=== PATIENT | male | born 1950 | race Caucasian/White ===

== ENCOUNTER → 2017-01-12 07:47 | Emergency (ER) | payer MEDICARE, OTHER ==
[~2017-01-12 07:47] MED LIST: Famotidine IV* 10 MG/ML 2 ML (20 mg) IV SLOW PU ONE; NS 0.9% 1000 ML* 1,000 ML IV ONE
--- NOTE | 2017-01-12 08:30 | RAD ---
HISTORY: Abdominal pain COMPARISONS: CT dated May 02, 2016 VIEWS: Frontal views of the abdomen. FINDINGS: BOWEL: There is a nonobstructive bowel gas pattern. There is a large amount of stool within the colon. CALCULI: There are no abnormal calculi. BONES AND SOFT TISSUES: Degenerative changes are noted OTHER FINDINGS: The lung bases are clear. There is no subphrenic gas. IMPRESSION: NONOBSTRUCTIVE BOWEL GAS PATTERN. LARGE AMOUNT STOOL WITHIN THE COLON.
[2017-01-12 08:44] LABS: Hematocrit 40 % (42-52); Hemoglobin 13.5 g/dl (14.0-18.0); Mean Corpuscular HGB Conc 33 g/dl (31-36); Mean Corpuscular Hemoglobin 29 pg (27-31); Mean Corpuscular Volume 88 fL (80-94); Mean Platelet Volume 9 um3 (7.4-10.4); Red Cell Distribution Width 13 % (10.5-15); White Blood Count 7.6 10^3/ul (3.5-10.8)
[2017-01-12 08:56] LABS: ALT 16 U/L (7-52); AST 14 U/L (13-39); Albumin 3.7 g/dL (3.2-5.2); Alkaline Phosphatase 53 U/L (34-104); Amylase 40 U/L (29-103); Anion Gap 4 mmol/L (2-11); Blood Urea Nitrogen 14 mg/dL (6-24); C Reactive Protein < 1.00 mg/L (< 5.00); CO2 Carbon Dioxide 30 mmol/L (22-32); Calcium 8.7 mg/dL (8.6-10.3); Chloride 103 mmol/L (101-111); EGFR African American 96.1 (>60); EGFR Non-African American 74.8 (>60); Globulin 2.3 g/dL (2-4); Glucose 98 mg/dL (70-100); Lipase 30 U/L (11.0-82.0); Magnesium 1.9 mg/dL (1.9-2.7); Sodium 137 mmol/L (133-145)
[2017-01-12 09:28] LABS: Urine Bacteria Absent (Absent); Urine Bilirubin Negative (Negative); Urine Glucose Negative (Negative); Urine Nitrite Negative (Negative)
[2017-01-12 12:09] VITALS: BP 117/55
--- NOTE | 2017-01-12 13:22 | ED ---
Sarthak Farfan Billy, scribed for Gael Dalton MD on 01/12/17 at 0843 . Syncope/Near Syncope - HPI Summary HPI Summary: This patient is a 66 year-old male who is two-days post-op bladder neck incision. He presents to the ED with a complaint of a near-syncopal episode this morning. He was sitting at his computer when he began to feel lightheaded and nearly had a syncopal episode. He complained of pain underneath the ribcage on the right, which later moved to pain underneath the left ribcage. He also reported some lower abdominal pain during the episode. Pain severity 7/10. He denies any headache, palpitations, chest pain, shortness of breath, or blurred vision, although he was very diaphoretic. - History Of Current Complaint Chief Complaint: EDSyncope Time Seen by Provider: 01/12/17 07:50 Hx Obtained From: Patient Onset/Duration: Gradual Onset Timing: Constant Context: Other - No LOC Activity At Onset: At Rest Associated Head Trauma: No Aggravating Factor(s): Nothing Alleviating Factor(s): Nothing Associated Signs And Symptoms: Diaphoresis - Allergies/Home Medications Allergies/Adverse Reactions: Allergies Allergy/AdvReac Type Severity Reaction Status Date / Time Ciprofloxacin [From Cipro] Allergy Severe [place]akes Verified 01/12/17 08:01 [place] Allergy Severe See Comment Verified 01/12/17 08:01 Penicillins [PCN] Allergy Unknown See Comment Verified 01/12/17 08:01 Cyclobenzaprine Allergy Rash Verified 01/12/17 08:01 Home Medications: Home Medications oxyCODONE/Acetamin 5/325 MG* [Percocet 5/325 TAB*] 1 tab PO Q4H PRN 01/12/17 [ History Confirmed 01/12/17] PMH/Surg Hx/FS Hx/Imm Hx Endocrine/Hematology History: Denies: Hx Diabetes Cardiovascular History: Denies: Hx Hypertension, Hx Pacemaker/ICD GI History: Reports: Other GI Disorders - splenic flexure syndrome History: Reports: Other Problems/Disorders - Overactive Bladder, Enlarged Prostate, interstitial cystitis Denies: Hx Dialysis, Hx Renal Disease Musculoskeletal History: Reports: Other Musculoskeletal History - Spinal Disk Deterioration, Mortons Neuromas Sensory History: Reports: Hx Hearing Aid - WILL NOT WEAR FOR MR Neurological History: Reports: Other Neuro Impairments/Disorders - Peripheral Neuropathy, Sleep Apnea, Denies: Hx Seizures Psychiatric History: Reports: Hx Panic Disorder - WILL BE OK FOR THIS MRI, Hx Post Traumatic Stress Disorder, Other Psychiatric Issues/Disorders - Social Anexity - Surgical History Surgery Procedure, Year, and Place: CYST REMOVED LT INDEX FINGER Infectious Disease History: No Infectious Disease History: Denies: Hx Clostridium Difficile, Hx Hepatitis, Hx Human Immunodeficiency Virus (HIV), Hx Shingles, Hx Tuberculosis, Traveled Outside the [place] in Last 30 Days - Family History Known Family History: Positive: Cardiac Disease Negative: Hypertension, Diabetes - Social History Alcohol Use: None Substance Use Type: Reports: None Smoking Status (MU): Never Smoked Tobacco Review of Systems Positive: Skin Diaphoresis Negative: Blurred Vision Negative: Palpitations, Chest Pain Negative: Shortness Of Breath Positive: Abdominal Pain Neurological: Other - lightheadedness Positive: Syncope - near-syncope. Negative: Headache All Other Systems Reviewed And Are Negative: Yes Physical Exam - Summary Physical Exam Summary: VITAL SIGNS: Reviewed. GENERAL: Patient is a well developed and nourished male who is lying comfortable in the stretcher. Patient is not in any acute respiratory distress. HEAD AND FACE: Normocephalic EYES: PERRLA, EOMI x 2. EARS: Hearing grossly intact. MOUTH: Oropharynx within normal limits. NECK: Supple, trachea is midline, no adenopathy, no JVD, no carotid bruit. CHEST: Symmetric, no tenderness at palpation LUNGS: Clear to auscultation bilaterally. No wheezing or crackles. CVS: Regular rate and rhythm, S1 and S2 present, no murmurs or gallops appreciated. ABDOMEN: Soft, tender to the epigastrium and LUQ. Bowel sounds are normal. No abdominal abnormal pulsations. EXTREMITIES: Full ROM in all major joints, no edema, no cyanosis or clubbing. NEURO: Alert and oriented x 3. No acute neurological deficits. Speech is normal and follows commands. SKIN: Dry and warm Triage Information Reviewed: Yes Vital Signs On Initial Exam: Initial Vitals Temp Pulse Resp BP Pulse Ox 98.1 F 57 20 128/64 100 01/12/17 07:52 01/12/17 07:52 01/12/17 07:52 01/12/17 07:52 01/12/17 07:52 Vital Signs Reviewed: Yes Diagnostics - Vital Signs Vital Signs Temp Pulse Resp BP Pulse Ox 01/12/17 07:52 98.1 F 57 20 128/64 100 - Laboratory Lab Results: Lab Results 01/12/17 01/12/17 01/12/17 Range/Units 08:28 08:28 08:28 WBC 7.6 (3.5-10.8) 10^3/ul RBC 4.60 (4.0-5.4) 10^6/ul Hgb 13.5 L (14.0-18.0) g/dl Hct 40 L (42-52) % MCV 88 (80-94) fL MCH 29 (27-31) pg MCHC 33 (31-36) g/dl RDW 13 (10.5-15) % Plt Count 108 L (150-450) 10^3/ul MPV 9 (7.4-10.4) um3 Neut % (Auto) 63.3 (38-83) % Lymph % (Auto) 27.4 (25-47) % [place] % (Auto) 8.1 (1-9) % Eos % (Auto) 0.5 (0-6) % Baso % (Auto) 0.7 (0-2) % Absolute Neuts (auto) 4.8 (1.5-7.7) 10^3/ul Absolute Lymphs (auto) 2.1 (1.0-4.8) 10^3/ul Absolute Monos (auto) 0.6 (0-0.8) 10^3/ul Absolute Eos (auto) 0 (0-0.6) 10^3/ul Absolute Basos (auto) 0.1 (0-0.2) 10^3/ul Absolute Nucleated RBC 0 10^3/ul Nucleated RBC % 0 Sodium 137 (133-145) mmol/L Potassium 4.0 (3.5-5.0) mmol/L Chloride 103 (101-111) mmol/L Carbon Dioxide 30 (22-32) mmol/L Anion Gap 4 (2-11) mmol/L BUN 14 (6-24) mg/dL Creatinine 1.00 (0.67-1.17) mg/dL Est GFR ( Amer) 96.1 (>60) Est GFR (Non-Af Amer) 74.8 (>60) BUN/Creatinine Ratio 14.0 (8-20) Glucose 98 (70-100) mg/dL Lactic Acid 1.2 (0.5-2.0) mmol/L Calcium 8.7 (8.6-10.3) mg/dL Magnesium 1.9 (1.9-2.7) mg/dL Total Bilirubin 0.40 (0.2-1.0) mg/dL AST 14 (13-39) U/L ALT 16 (7-52) U/L Alkaline Phosphatase 53 (34-104) U/L C-Reactive Protein < 1.00 (< 5.00) mg/L Total Protein 6.0 L (6.4-8.9) g/dL Albumin 3.7 (3.2-5.2) g/dL Globulin 2.3 (2-4) g/dL Albumin/Globulin Ratio 1.6 (1-3) Amylase 40 (29-103) U/L Lipase 30 (11.0-82.0) U/L Urine Color Urine Appearance Urine pH (5-9) Ur Specific [place] (1.010-1.030) Urine Protein (Negative) Urine Ketones (Negative) Urine Blood (Negative) Urine Nitrate (Negative) Urine Bilirubin (Negative) Urine Urobilinogen (Negative) Ur Leukocyte Esterase (Negative) Urine WBC (Auto) (Absent) Urine RBC (Auto) (Absent) Urine Bacteria (Absent) Urine Glucose (Negative) 01/12/17 Range/Units 09:10 WBC (3.5-10.8) 10^3/ul RBC (4.0-5.4) 10^6/ul Hgb (14.0-18.0) g/dl Hct (42-52) % MCV (80-94) fL MCH (27-31) pg MCHC (31-36) g/dl RDW (10.5-15) % Plt Count (150-450) 10^3/ul MPV (7.4-10.4) um3 Neut % (Auto) (38-83) % Lymph % (Auto) (25-47) % [place] % (Auto) (1-9) % Eos % (Auto) (0-6) % Baso % (Auto) (0-2) % Absolute Neuts (auto) (1.5-7.7) 10^3/ul Absolute Lymphs (auto) (1.0-4.8) 10^3/ul Absolute Monos (auto) (0-0.8) 10^3/ul Absolute Eos (auto) (0-0.6) 10^3/ul Absolute Basos (auto) (0-0.2) 10^3/ul Absolute Nucleated RBC 10^3/ul Nucleated RBC % Sodium (133-145) mmol/L Potassium (3.5-5.0) mmol/L Chloride (101-111) mmol/L Carbon Dioxide (22-32) mmol/L Anion Gap (2-11) mmol/L BUN (6-24) mg/dL Creatinine (0.67-1.17) mg/dL Est GFR ( Amer) (>60) Est GFR (Non-Af Amer) (>60) BUN/Creatinine Ratio (8-20) Glucose (70-100) mg/dL Lactic Acid (0.5-2.0) mmol/L Calcium (8.6-10.3) mg/dL Magnesium (1.9-2.7) mg/dL Total Bilirubin (0.2-1.0) mg/dL AST (13-39) U/L ALT (7-52) U/L Alkaline Phosphatase (34-104) U/L C-Reactive Protein (< 5.00) mg/L Total Protein (6.4-8.9) g/dL Albumin (3.2-5.2) g/dL Globulin (2-4) g/dL Albumin/Globulin Ratio (1-3) Amylase (29-103) U/L Lipase (11.0-82.0) U/L Urine Color Straw Urine Appearance Clear Urine pH 7.0 (5-9) Ur Specific [place] 1.008 L (1.010-1.030) Urine Protein 1+(30 mg/dl) H (Negative) Urine Ketones Negative (Negative) Urine Blood 3+ H (Negative) Urine Nitrate Negative (Negative) Urine Bilirubin Negative (Negative) Urine Urobilinogen Negative (Negative) Ur Leukocyte Esterase Trace H (Negative) Urine WBC (Auto) 1+(6-10/hpf) H (Absent) Urine RBC (Auto) 3+(>10/hpf) H (Absent) Urine Bacteria Absent (Absent) Urine Glucose Negative (Negative) Result Diagrams: 01/12/17 08:28 05/27/17 08:28 Lab Statement: Any lab studies that have been ordered have been reviewed, and results considered in the medical decision making process. - Radiology Abdomen XRay Radiology Interpretation Completed By: Radiologist - Nonobstructive bowel gas pattern. Large amount stool within the colon. - EKG 0838 EKG Interpretation: sinus bradycardia 52 bpm, no STEMI Re-Evaluation - Re-Evaluation First Eval Re-Evaluation Time: 12:05 Change: Improved Comment: He feels much better. After he passed gas, his symptoms completely resolved. He was offered a CT of the abdomen for further imaging at this time, but he declined. He will be discharged home. Course/Dx Assessment/Plan: This patient is a 66 year-old male who is two-days post-op bladder neck incision. He presents to the ED with a complaint of a near- syncopal episode this morning. He was sitting at his computer when he began to feel lightheaded and nearly had a syncopal episode. He complained of pain underneath the ribcage on the right, which later moved to pain underneath the left ribcage. He also reported some lower abdominal pain during the episode. Pain severity 7/10. He denies any headache, palpitations, chest pain, shortness of breath, or blurred vision, although he was very diaphoretic. Test results WNL except for a slight anemia. UA shows 3+ blood with some contamination, possibly secondary to his bladder manipulation 2 days ago. Abdominal x-ray shows large amounts of stool in the colon and a nonobstructive gas pattern. Since he had bladder manipulation 2 days ago, I ordered a CT of the abd/pel, which the patient declined. He reports that about 3 or 4 days ago, he had a CT abd/pel which was normal, so he does not want to repeat it now. The patient had several episodes of gas movement per rectum with resolution of his symptoms. Patient reported he develop the pain in abdomen, became diaphoretic and felt like he was going to pass ou. I believe he had a vasovagal episode.. I gave the patient a prescription for Miralax and instructed him to follow up with his PCP and urologist. He was instructed that if he develops any fevers, chills, increase in pain, nausea, or vomiting, he is to return to the ED immediately for further workup and management. I discussed all the findings and test results with the patient. Patient was instructed to return to the emergency room immediately if any of the symptoms return or worsens. Patient understands and agrees. Plan of care was discussed with the patient and patient understands and agrees with the plan of care. All questions were answered at patient satisfaction. There were no further complaints or concerns. Patient is alert and oriented x 3. Patient vital signs are stable. Patient is to follow up with primary care physician in the next 2 to 3 days. Patient understands and agrees. - Diagnoses Differential Diagnosis/HQI/PQRI: Positive: Cerebral Vascular Accident, Seizure, Transient Ischemic Attack Provider Diagnoses: Abdominal pain, Constipation, Vasovagal syncope Discharge - Discharge Plan Condition: Stable Disposition: HOME Prescriptions: Polyethylene Glycol 3350* [Miralax*] 17 gm PO DAILY #12 packet Patient Education Materials: Abdominal Pain (ED), Constipation (ED), Syncope ( ED) Referrals: Melchor Ewing MD [Primary Care Provider] - The documentation as recorded by the Sarthak rosa Billy accurately reflects the service I personally performed and the decisions made by me, Gael Dalton MD.
== END | disposition home or self-care (01) ==
LOC: ED 07:47
DX: R10.9 Unspecified abdominal pain (principal); K59.00 Constipation, unspecified; R55 Syncope and collapse; Z98.890 Other specified postprocedural states; Z88.0 Allergy status to penicillin
CPT/HCPCS: 36415; 74020; 80053; 81003; 81015; 82150; 83605; 83690; 83735; 85025; 86140; 87086; 93005; 96374; 99283

== ENCOUNTER 2018-05-12 21:33 | Emergency (ER) | payer MEDICARE, OTHER ==
--- OUTSIDE RECORDS SUMMARY | 2018-05-12 21:57 | XMS REPORT ---
:1950 External Reference #:[id number] Author Organization [employer] Address [address] [place] [address] [place] [address] Phone [phone] Care Team Providers Name Role Phone Melchor Ewing MD Primary Care Physician Unavailable Payers Type Date Identification Numbers Payment Provider Subscriber Medicare Primary Policy Number: [id number] Medicare Jenniffer Davis PayID: [id number] [address] [place] [address] Medigap Part B Policy Number: [id number] A[employer] Insurance Jenniffer Davis PayID: [id number] [address] [place] [address] Medigap Part B Effective: Policy Number: A[employer] Insurance Jeanette Mcbride 2012 [id number] Dominique Expires: 2016 Group Number: [id number] [address] PayID: [id number] [place] [address] Problems Date Description Provider Status Onset: 08/20/2014 Obstructive sleep apnea syndrome Roz Randolph MD Active Onset: 08/20/2014 Insomnia Roz Randolph MD Active Onset: 08/20/2014 Periodic limb movement disorder Roz Randolph MD Active Onset: 05/09/2016 Chronic post-traumatic stress Melchor Ewing, Active disorder MJosh,FACP Onset: 06/13/2016 Gastroesophageal reflux disease Georgie Mcgraw DNP, RN, Active [employer] Onset: 07/23/2017 Chronic interstitial cystitis Melchor Ewing, Active Minoo,FACP Onset: 07/23/2017 Migraine without aura, not Melchor Ewing Active refractory Minoo,FACP Onset: 08/03/2013 Destruction of lesion of shoulder Richard Munoz M.D. Inactive joint Inactive: 05/09/2016 Onset: 05/09/2016 Chronic interstitial cystitis Melchor Ewing M.D.,FACP Inactive Inactive: 03/05/2017 Family History Date Family Member(s) Problem(s) Comments General Heart Disease General Anxiety/Panic disorder Father Emphysema Mother Pacemaker Siblings 5 First Brother mental retardation Social History Type Date Description Comments Marital Status Lives With Spouse Occupation Retired Cigarette Use Never Smoked Cigarettes ETOH Use 07/23/2017 Never used alcohol Recreational Drug Use Denies Drug Use Smoking Patient has never smoked Per pt never smoked in the [employer] as stated in medical records Daily Caffeine Consumes on average 1 cup of regular coffee per day Exercise Type/Frequency Exercises regularly walking General Hx Text 3 sons Allergies, Adverse Reactions, Alerts Date Description Reaction Status Severity Comments 08/03/2013 Penicillin active 06/16/2014 Cipro Shaking/tremors active 10/25/2015 [place] active Faint 05/09/2016 Cyclobenzaprine active 06/12/2016 Maoi Inhabitors active 10/29/2016 Cimetidine active 2017 Gluten active Medications Medication Date Status Form Strength Qnty SIG Indications Ordering Provider Aspirin /10 Active Tablets 81mg 90tab 1 by mouth s every day Klonopin 00 Active Tablets 1mg 30tab 2 tabs once a Unknown /0000 s day Imitrex Active Tablets 50mg 18tab as needed h/a Unknown /0000 s Mens 00/00 Active Tablets 1 by mouth Unknown Multivitamin /0000 every day as Plus needed if pt rembers to take Omeprazole [address] 20mg 1 by mouth Unknown / every day Pyridium /10 Hx Tablets 100mg as directed by - 01/15 Carafate 03/10 Hx Tablets 1gm 1 by mouth four times a - day 01/15 Sucralfate 10/25 Hx Suspension 1GM/10ML 300ml 10 K29.60 Melchor /Julieta milliliters Karen Ewing, - four times a M.D.,FACP 01/15 day as needed Omeprazole 05/[address] 20mg 30cap 1 by mouth K29.60 Melchor /2015 s every day for Karen Mcgehee, - 2 wks then as M.D.,FACP 10/26 needed Fluticasone 06/16 Hx Suspension 50mcg/Act 16gm 2 sprays each 780.59 Roz nostril Tomasa, - everyday MD 01/29 Hydrocodone/Ac 08/02 Hx Tablets 5-325mg 60tab 1-2 po q6 Richard etaminophen s hours prn Alexander - pain M.D. 06/14 Tramadol HCL 07/23 Hx Tablets 50mg 120ta 1 tab po q6h Richard bs Alexander, - M.D. 06/14 Garlic 00/00 Hx daily Unknown /0000 - 01/29 Glucosamine 00/00 Hx Capsules 1500Com 1 by mouth Unknown Chondroitin /0000 every day 1500 Complex - occasionally 01/15 Turmeric 00/00 Hx occasionally Unknown /0000 - 12/19 Magnesium 00/00 Hx Tablets 400mg 1 by mouth Unknown /0000 every day ( - 06/13/16 not 10/26 currently taking ) Sodium 00 Hx 5% one drop in Unknown Chloride /0000 each eye qd - 06/12 Fish Oil 0000 Hx Capsules 435mg 2 by mouth Unknown /0000 every day - 07/23 Oxycodone-Acet 0000 Hx Tablets 2.5-325mg 1 tab every 4 Unknown aminophen /0000 hours as - needed pain 03/05 after surgery Medications Administered in Office Medication Date Status Form Strength Qnty SIG Indications Ordering Provider Td(Adult),Unsp Administered Injection Unknown ecified 015 Depomedrol Administered Injection Richard 80MG 011 Minoo Munoz Depomedrol Administered Injection Richard 80MG 011 Minoo Munoz Depomedrol Administered Injection Richard 40MG 011 Minoo Munoz Td(Adult),Unsp Administered Injection Unknown ecified 005 Immunizations CPT Code Status Date Vaccine Lot # [id number] Given 07/23/2017 Pneumonia Vaccine [id number] Given 05/09/2016 Pneumococcal Conjugate Vaccine 13 Valent For [id number] Intramuscular Use 75049 Given 09/08/2011 Tdap - Tetanus/Diptheria/Acellular Pertussis [id number] Given 07/05/2005 Flu Vaccine NOS Vital Signs Date Vital Result Comment 04/25/2018 Height 68 inches 5'8" Weight 162.00 lb Heart Rate 60 /min reg BP Systolic Sitting 120 mmHg regular right upper extremity BP Diastolic Sitting 78 mmHg regular right upper extremity Respiratory Rate 14 /min BMI (Body Mass Index) 24.6 kg/m2 09/19/2017 Weight 165.00 lb Heart Rate 63 /min BP Systolic 123 mmHg BP Diastolic 79 mmHg Body Temperature 98.4 F O2 % BldC Oximetry 98 % 07/23/2017 Height 68 inches 5'8" Weight 166.00 lb Heart Rate 60 /min BP Systolic Sitting 140 mmHg BP Diastolic Sitting 80 mmHg BP Systolic Recheck 138 mmHg BP Diastolic Recheck 82 mmHg Body Temperature 97.3 F O2 % BldC Oximetry 97 % BMI (Body Mass Index) 25.2 kg/m2 2017 Height 70 inches 5'10" Weight 154.00 lb Heart Rate 52 /min BP Systolic Sitting 100 mmHg BP Diastolic Sitting 60 mmHg Respiratory Rate 14 /min O2 % BldC Oximetry 97 % BMI (Body Mass Index) 22.1 kg/m2 03/05/2017 Weight 163.00 lb Heart Rate 58 /min BP Systolic 130 mmHg BP Diastolic 66 mmHg Body Temperature 98.2 F O2 % BldC Oximetry 98 % 01/15/2017 Weight 161.25 lb Heart Rate 59 /min BP Systolic Sitting 152 mmHg BP Diastolic Sitting 80 mmHg BP Systolic Recheck 152 mmHg BP Diastolic Recheck 80 mmHg Body Temperature 96.7 F O2 % BldC Oximetry 98 % 10/29/2016 Height 69 inches 5'9" Weight 161.00 lb Heart Rate 54 /min BP Systolic Sitting 122 mmHg BP Diastolic Sitting 70 mmHg Respiratory Rate 14 /min O2 % BldC Oximetry 96 % BMI (Body Mass Index) 23.8 kg/m2 10/29/2016 Height 69 inches 5'9" 07/31/2016 Height 69 inches 5'9" Weight 159.00 lb Heart Rate 54 /min BP Systolic 118 mmHg BP Diastolic 62 mmHg Respiratory Rate 14 /min O2 % BldC Oximetry 97 % BMI (Body Mass Index) 23.5 kg/m2 06/13/2016 Height 69 inches 5'9" Weight 159.00 lb Heart Rate 72 /min BP Systolic 114 mmHg BP Diastolic 60 mmHg Respiratory Rate 14 /min O2 % BldC Oximetry 98 % BMI (Body Mass Index) 23.5 kg/m2 06/12/2016 Weight 159.00 lb with shoes Heart Rate 73 /min BP Systolic Sitting 120 mmHg BP Diastolic Sitting 68 mmHg Body Temperature 96.9 F O2 % BldC Oximetry 98 % 05/09/2016 Height 68 inches 5'8" Weight 160.38 lb Heart Rate 61 /min BP Systolic Sitting 118 mmHg BP Diastolic Sitting 62 mmHg Body Temperature 97.0 F O2 % BldC Oximetry 97 % BMI (Body Mass Index) 24.4 kg/m2 01/31/2016 Height 70 inches 5'10" Weight 160.00 lb Heart Rate 75 /min BP Systolic 104 mmHg BP Diastolic 70 mmHg Respiratory Rate 14 /min O2 % BldC Oximetry 98.8 % BMI (Body Mass Index) 23.0 kg/m2 10/25/2015 Height 70 inches 5'10" Weight 160.00 lb Heart Rate 57 /min BP Systolic Sitting 122 mmHg BP Diastolic Sitting 68 mmHg Respiratory Rate 16 /min O2 % BldC Oximetry 97 % BMI (Body Mass Index) 23.0 kg/m2 04/26/2015 Height 69 inches 5'9" Heart Rate 60 /min BP Systolic 120 mmHg BP Diastolic 70 mmHg Respiratory Rate 14 /min O2 % BldC Oximetry 97 % 12/20/2014 Height 69 inches 5'9" Weight 165.00 lb Heart Rate 48 /min BP Systolic Sitting 126 mmHg BP Diastolic Sitting 72 mmHg O2 % BldC Oximetry 97 % BMI (Body Mass Index) 24.4 kg/m2 Neck Circumference in inches 14.5 10/18/2014 Height 69 inches 5'9" Weight 165.00 lb Heart Rate 62 /min BP Systolic Sitting 138 mmHg BP Diastolic Sitting 68 mmHg Respiratory Rate 18 /min O2 % BldC Oximetry 98 % BMI (Body Mass Index) 24.4 kg/m2 08/20/2014 Height 70 inches 5'10" Weight 165.00 lb Heart Rate 60 /min BP Systolic Sitting 124 mmHg BP Diastolic Sitting 58 mmHg Respiratory Rate 18 /min O2 % BldC Oximetry 98 % BMI (Body Mass Index) 23.7 kg/m2 06/16/2014 Height 70 inches 5'10" Weight 167.00 lb Heart Rate 64 /min BP Systolic Sitting 126 mmHg left arm, reg cuff BP Diastolic Sitting 88 mmHg left arm, reg cuff Respiratory Rate 16 /min Body Temperature 99.5 F Temporal O2 % BldC Oximetry 98 % Room air BMI (Body Mass Index) 24.0 kg/m2 Neck Circumference in inches 15 06/15/2014 Height 70 inches 5'10" Weight 165.00 lb Heart Rate 63 /min BP Systolic 119 mmHg BP Diastolic 71 mmHg BMI (Body Mass Index) 23.7 kg/m2 Results Test Date Test Result H/L Range Note Lipid Profile (Trig/Chol/HDL) 06/18/2017 Triglycerides 115 mg/dL 1 Cholesterol 194 mg/dL 2 HDL Cholesterol 63.1 mg/dL 3 LDL Cholesterol 108 mg/dL 4 Basic Metabolic Panel 06/18/2017 Sodium 140 mmol/L 133-145 Potassium 4.6 mmol/L 3.5-5.0 Chloride 104 mmol/L 101-111 Co2 Carbon Dioxide 32 mmol/L 22-32 Anion Gap 4 mmol/L 2-11 Glucose 101 mg/dL High 70-100 Blood Urea Nitrogen 12 mg/dL 6-24 Creatinine 0.92 mg/dL 0.67-1.17 BUN/Creatinine Ratio 13.0 8-20 Calcium 9.4 mg/dL 8.6-10.3 Egfr Non- 82.1 >60 Egfr 105.5 >60 5 Urine Culture And 01/12/2017 Urine Culture SEE RESULT BELOW 6 Sensitivities CBC Auto Diff 01/12/2017 White Blood Count 7.6 10^3/uL 3.5-10.8 Red Blood Count 4.60 10^6/uL 4.0-5.4 Hemoglobin 13.5 g/dL Low 14.0-18.0 Hematocrit 40 % Low 42-52 Mean Corpuscular Volume 88 fL 80-94 Mean Corpuscular Hemoglobin 29 pg 27-31 Mean Corpuscular HGB Conc 33 g/dL 31-36 Red Cell Distribution Width 13 % 10.5-15 Platelet Count 108 10^3/uL Low 150-450 Mean Platelet Volume 9 um3 7.4-10.4 Abs Neutrophils 4.8 10^3/uL 1.5-7.7 Abs Lymphocytes 2.1 10^3/uL 1.0-4.8 Abs Monocytes 0.6 10^3/uL 0-0.8 Abs Eosinophils 0 10^3/uL 0-0.6 Abs Basophils 0.1 10^3/uL 0-0.2 Abs Nucleated RBC 0 10^3/uL Granulocyte % 63.3 % 38-83 Lymphocyte % 27.4 % 25-47 Monocyte % 8.1 % 1-9 Eosinophil % 0.5 % 0-6 Basophil % 0.7 % 0-2 Nucleated Red Blood Cells % 0 Laboratory test finding 01/12/2017 Lactic Acid 1.2 mmol/L 0.5-2.0 7 Comp Metabolic Panel 01/12/2017 Sodium 137 mmol/L 133-145 Potassium 4.0 mmol/L 3.5-5.0 Chloride 103 mmol/L 101-111 Co2 Carbon Dioxide 30 mmol/L 22-32 Anion Gap 4 mmol/L 2-11 Glucose 98 mg/dL 70-100 Blood Urea Nitrogen 14 mg/dL 6-24 Creatinine 1.00 mg/dL 0.67-1.17 BUN/Creatinine Ratio 14.0 8-20 Calcium 8.7 mg/dL 8.6-10.3 Total Protein 6.0 g/dL Low 6.4-8.9 Albumin 3.7 g/dL 3.2-5.2 Globulin 2.3 g/dL 2-4 Albumin/Globulin Ratio 1.6 1-3 Total Bilirubin 0.40 mg/dL 0.2-1.0 Alkaline Phosphatase 53 U/L 34-104 Alt 16 U/L 7-52 Ast 14 U/L 13-39 Egfr Non- 74.8 >60 Egfr 96.1 >60 8 Laboratory test finding 01/12/2017 Magnesium 1.9 mg/dL 1.9-2.7 Amylase 40 U/L 29-103 Lipase 30 U/L 11.0-82.0 C Reactive Protein < 1.00 mg/L < 5.00 9 Urinalysis Profile 01/12/2017 Urine Color Straw Urine Appearance Clear Urine Specific [place] 1.008 Low 1.010-1.030 Urine pH 7.0 5-9 Urine Urobilinogen Negative Negative Urine Ketones Negative Negative Urine Protein 1+(30 mg/dL) Negative Urine Leukocytes Trace Negative Urine Blood 3+ Negative Urine Nitrite Negative Negative Urine Bilirubin Negative Negative Urine Glucose Negative Negative Urine White Blood Cell 1+(6-10/hpf) Absent Urine Red Blood Cell 3+(>10/hpf) Absent Urine Bacteria Absent Absent Laboratory test finding 06/25/2016 Clotest SEE RESULT BELOW , 11 1 Desirable: <150 Borderline High: 150-199 High: 200-499 Very High: >500 2 Desirable: <200 Borderline High: 200-239 High: >239 3 Low: <40 Desirable: 40-60 High: >60 4 Desirable: <100 Near Optimal: 100-129 Borderline High: 130-159 High: 160-189 Very High: >189 5 Because ethnic data is not always readily available, this report includes an eGFR for both -Americans and non- Americans. The National Kidney Disease Education Program (NKDEP) does not endorse the use of the MDRD equation for patients that are not between the ages of 18 and 70, are , have extremes of body size, muscle mass, or nutritional status, or are non- or non-. According to the National Kidney Foundation, irrespective of diagnosis, the stage of the disease is based on the level of kidney function: Stage Description GFR(mL/min/1.73 m(2)) 1 Kidney damage with normal or decreased GFR 90 2 Kidney damage with mild decrease in GFR 60-89 3 Moderate decrease in GFR 30-59 4 Severe decrease in GFR 15-29 5 Kidney failure <15 (or dialysis) 6 SEE RESULT BELOW Name: JENNIFFER DAVIS : [address]: Gael Dalton MD Acct: [id number] Unit: [id number] AGE: 66 Location: ED Re01/12/17 SEX: M Status: REG ER SPEC: [id number] KESHAWN: 01/12/[address]: Gael Dalton MD REQ: [id number] RECD: 01/12/17 STATUS: MARCIAL STRONG DR: Melchor Ewing MD _ SOURCE: URINE SPDESC: ORDERED: Urine Culture Procedure Result Reported Site Urine Culture Final 01/13/17906 ML No Growth (<1,000 CFU/mL) * ML - MAIN LAB ([facility]) . END OF REPORT * ML=Testing performed at Main Lab DEPARTMENT OF PATHOLOGY, [address] [place] [address] Ryan Agustin M.D. Director [facility] # [id number] [facility] Severe Sepsis and Septic Shock Management Bundle Measure requires all lactic acids initially measuring >2.0 mmol/L be repeated. 8 Because ethnic data is not always readily available, this report includes an eGFR for both -Americans and non- Americans. The National Kidney Disease Education Program (NKDEP) does not endorse the use of the MDRD equation for patients that are not between the ages of 18 and 70, are , have extremes of body size, muscle mass, or nutritional status, or are non- or non-. According to the National Kidney Foundation, irrespective of diagnosis, the stage of the disease is based on the level of kidney function: Stage Description GFR(mL/min/1.73 m(2)) 1 Kidney damage with normal or decreased GFR 90 2 Kidney damage with mild decrease in GFR 60-89 3 Moderate decrease in GFR 30-59 4 Severe decrease in GFR 15-29 5 Kidney failure <15 (or dialysis) 9 Acute inflammation: >10.00 10 [id number] 11 SEE RESULT BELOW Name: JENNIFFER DAVIS REX : [address]: Maximus Haider MD Acct: [id number] Unit: [id number] AGE: 66 Location: [facility] Re06/25/16 SEX: M Status: REG REF SPEC: [id number] KESHAWN: 06/25/16-1327 [facility] DR: Maximus Haider MD REQ: [id number] RECD: 06/25/16 STATUS: MARCIAL FREITAS DR: Melchor Ewing MD _ SOURCE: [facility]: ORDERED: Clotest COMMENTS: [id number] Procedure Result Reported Site Clotest Final 06/26/16729 ML Clotest Negative * ML - MAIN LAB ([facility]) . END OF REPORT * ML=Testing performed at Main Lab DEPARTMENT OF PATHOLOGY, [address] [place] [address] Ryan Agustin M.D. Director [facility] # [id number] Procedures Date CPT Code Description Status 09/19/2017 42371 EKG Tracing & Interpretation Completed 01/20/2017 15977 Holter Monitor Review (24 hr) review & interp only Completed 01/15/2017 46338 ECG Monitor/Recording W/Visual Superimposition Scanning Completed 11/28/2016 Colonoscopy Completed 06/25/2016 Colonoscopy Completed 10/05/2014 Colonoscopy Completed 07/27/2014 93857 Polysomnography Sleep Staging 4+ Parameters W/Cpap Completed 07/06/2014 30635 Polysomnography Sleep Staging 4+ Parameters Completed 08/02/2011 Inject/Drain Joint/Bursa Major W/O US Completed 04/02/2011 Inject/Drain Joint/Bursa Major W/O US Completed 04/02/2011 Inject/Drain Joint/Bursa Intermediate W/O US Completed 09/30/2009 Colonoscopy Completed Encounters Type Date Location Provider CPT E/M Dx Office Visit 09/19/2017 11:10a [facility] Apurva Salinas, MANAGER [employer] [address] R00.[address] - [address] R60.0 Office Visit 2017 11:00a [facility] Georgie Mcgraw, 05186 G47.33 [facility] DEMETRIUS VAUGHN, COMPUTER GAME TESTER-DEEPALI Office Visit 03/05/2017 2:10p [facility] Melchor Ewing, 77099 N32.89 - Celi Hennessy,FACP K90.41 R55 Office Visit 01/15/2017 9:50a [facility] Melchor Ewing, 64049 R55 - Celi Hennessy,FACP T83.511A Office Visit 10/29/2016 10:15a [facility] Georgie Mcgraw, 28612 G47.33 [facility] DEMETRIUS VAUGHN, COMPUTER GAME TESTER-DEEPALI Office Visit 07/31/2016 10:15a [facility] Georgie Mcgraw 81406 G47.33 [facility] DEMETRIUS VAUGHN, COMPUTER GAME TESTER-DEEPALI Office Visit 06/13/2016 2:30p [facility] Georgie Mcgraw 05388 G47.33 [facility] DEMETRIUS VAUGHN, [facility] K21.9 F45.8 Office Visit 06/12/2016 8:50a [facility] Melchor Ewing, 44963 K29.60 - Celi Hennessy,FACP G47.33 Office Visit 05/09/2016 1:00p [facility] Melchor Ewing, 15919 K29.60 Medicine - [place] Derek Hennessy,FACP G47.33 F43.12 G40.89 Z23 Office Visit 01/31/2016 11:00a [facility] Georgie Mcgraw, 24366 G47.33 [facility] RODERICK, RN, [facility] Office Visit 10/25/2015 8:00a [facility] Georgie Mcgraw, 17464 G47.33 [facility] RODERICK RN, [facility] G47.61 Office Visit 04/26/2015 8:45a [facility] [place] [address] 327.23 [facility] [employer] 780.52 Office Visit 12/20/2014 10:30a [facility] [place] [address] 327.23 [facility] [employer] 780.52 Office Visit 10/18/2014 1:00p [facility] [place] [address] 327.23 [facility] [employer] 780.52 327.51 Office Visit 08/20/2014 2:00p [facility] [place] [address] 327.23 [facility] [employer] 780.52 327.51 Office Visit 06/16/2014 10:15a [facility] [place] [address] 780.59 [facility] [employer] 780.52 Office Visit 06/15/2014 3:00p [facility] Roland Merritt 94764 355.6 C.MPorter Hennessy Office Visit 08/30/2011 9:15a [facility] Richard Munoz M.D. 43468 840.7 C.M.A. Office Visit 08/02/2011 10:30a [facility] Richard Munoz M.D. 54204 716.91 C.M.A. 719.41 726.0 840.7 Office Visit 04/30/2011 10:00a [facility] Richard Munoz M.D. 51005 716.91 C.M.A. Office Visit 04/02/2011 1:30p [facility] Richard Munoz M.D. 33455 726.10 C.M.A. 716.91 Office Visit 03/15/2011 10:30a [facility] Richard Munoz M.D. 28928 726.0 C.M.A. 726.10 Plan of Care Future Appointment(s):04/27/2019 11:15 am - Georgie Mcgraw DNP, RN, COMPUTER GAME TESTER-BC at [facility]04/25/2018 - Georgie Mcgraw DNP, RN, COMPUTER GAME TESTER- BCG47.33 Obstructive sleep apnea (adult) (pediatric)Comments:On BiPAP auto AHI 6.6/hourFollow up:1 yearRecommendations:Continue PAP device, Benefitting and compliant with treatment. Cleaning Wipe off mask daily (baby wipe-no scent, or warm water) Clean mask, tubing, filter, and water chamber weekly in mild no scent dish soap and water. Hang to dry. So-Clean is an option (not covered by insurance) If you have any sleepiness while driving you MUST avoid operating a vehicle or machinery. If you have difficulty with your equipment, or need to replace your mask or hoses, please contact your homecare agency. A weight change of 20 pounds or more may have an effect on your equipment; if you are experiencing problems please call for an appointment. If you have any further questions, please call the [facility] at [phone].R09.81 Nasal congestionRecommendations:salt water gargles Neti pot in the evening to rinse the nose Make sure you drink enough non-caffeinefluids
--- NOTE | 2018-05-13 03:15 | ED ---
Throat Pain/Nasal Congestion - HPI Summary HPI Summary: Patient complains of sensation of lump in his throat, occasional dysphasia 3-4 months, worse in the past few days. One episode of brown mucus yesterday times one. Eating and drinking normally, tolerating saliva. Denies trauma, fever, cough, SOB, CP, N/V/D, abdominal pain, change in urine, change in BM. Medical history is anxiety, PTSD. - History of Current Complaint Chief Complaint: EDThroatPain Time Seen by Provider: 05/13/18 01:27 Hx Obtained From: Patient Onset/Duration: Gradual Onset Severity: Moderate Associated Signs And Symptoms: Positive: Dysphagia Cough: None - Allergies/Home Medications Allergies/Adverse Reactions: Allergies Allergy/AdvReac Type Severity Reaction Status Date / Time lithium Allergy See Comment Verified 05/12/18 21:46 Penicillins Allergy Unknown Verified 05/12/18 21:46 Reaction Details ciprofloxacin AdvReac Shakes Verified 05/12/18 21:46 cyclobenzaprine AdvReac Rash Verified 05/12/18 21:46 PMH/Surg Hx/FS Hx/Imm Hx Endocrine/Hematology History: Denies: Hx Diabetes Cardiovascular History: Denies: Hx Hypertension, Hx Pacemaker/ICD GI History: Reports: Other GI Disorders - splenic flexure syndrome History: Reports: Other Problems/Disorders - Overactive Bladder, Enlarged Prostate, interstitial cystitis Denies: Hx Dialysis, Hx Renal Disease Musculoskeletal History: Reports: Other Musculoskeletal History - Spinal Disk Deterioration, Mortons Neuromas Sensory History: Reports: Hx Hearing Aid - WILL NOT WEAR FOR MR Neurological History: Reports: Other Neuro Impairments/Disorders - Peripheral Neuropathy, Sleep Apnea, Denies: Hx Seizures Psychiatric History: Reports: Hx Panic Disorder - WILL BE OK FOR THIS MRI, Hx Post Traumatic Stress Disorder, Other Psychiatric Issues/Disorders - Social Anexity - Surgical History Surgery Procedure, Year, and Place: CYST REMOVED LT INDEX FINGER Infectious Disease History: No Infectious Disease History: Denies: Hx Clostridium Difficile, Hx Hepatitis, Hx Human Immunodeficiency Virus (HIV), Hx Shingles, Hx Tuberculosis, Traveled Outside the [place] in Last 30 Days - Family History Known Family History: Positive: None, Cardiac Disease Negative: Hypertension, Diabetes - Social History Alcohol Use: None Substance Use Type: Reports: None Smoking Status (MU): Never Smoked Tobacco Review of Systems Constitutional: Negative Eyes: Negative Positive: Sore Throat Cardiovascular: Negative Respiratory: Negative Gastrointestinal: Negative Genitourinary: Negative Musculoskeletal: Negative Skin: Negative Neurological: Negative Psychological: Normal All Other Systems Reviewed And Are Negative: Yes Physical Exam Triage Information Reviewed: Yes Vital Signs On Initial Exam: Initial Vitals Temp Pulse Resp BP Pulse Ox 97.9 F 58 16 135/77 98 05/12/18 21:41 05/12/18 21:41 05/12/18 21:41 05/12/18 21:41 05/12/18 21:41 Vital Signs Reviewed: Yes Appearance: Positive: Well-Appearing Skin: Positive: Warm Head/Face: Positive: Normal Head/Face Inspection Eyes: Positive: Normal ENT: Positive: Normal ENT inspection Neck: Positive: Supple Respiratory/Lung Sounds: Positive: Clear to Auscultation Cardiovascular: Positive: Normal Abdomen Description: Positive: Nontender Musculoskeletal: Positive: Normal Neurological: Positive: Normal Psychiatric: Positive: Normal AVPU Assessment: Alert - Marie Coma Scale Best Eye Response: 4 - Spontaneous Best Motor Response: 6 - Obeys Commands Best Verbal Response: 5 - Oriented Coma Scale Total: 15 Diagnostics - Vital Signs Vital Signs Temp Pulse Resp BP Pulse Ox 05/13/18 02:27 56 111/64 95 05/13/18 02:00 53 98 05/13/18 01:44 54 129/75 98 05/12/18 23:43 97.9 F 60 16 121/61 98 05/12/18 21:41 97.9 F 58 16 135/77 98 - Laboratory Lab Results: Lab Results 05/13/18 Range/Units 01:53 Group A Strep Rapid Negative (Negative) Lab Statement: Any lab studies that have been ordered have been reviewed, and results considered in the medical decision making process. - Radiology cxr Xray Interpretation: No Acute Changes Radiology Interpretation Completed By: ED Physician soft tissue neck Xray Interpretation: No Acute Changes Radiology Interpretation Completed By: ED Physician EENT Course/Dx - Course Course Of Treatment: Patient complains of sensation of lump in his throat, occasional dysphasia 3-4 months, worse in the past few days. One episode of brown mucus yesterday times one. Eating and drinking normally, tolerating saliva. Denies trauma, fever, cough, SOB, CP, N/V/D, abdominal pain, change in urine, change in BM. Medical history is anxiety, PTSD. Physical exam unremarkable. Vital signs unremarkable. Patient tolerating saliva. No work of breathing. X-ray soft tissue neck negative. Chest x-ray negative. Follow- up with GI for endoscopy. - Diagnoses Provider Diagnoses: Throat pain in adult Discharge - Sign-Out/Discharge Documenting (check all that apply): Patient Departure - Discharge Plan Condition: Stable Disposition: HOME Patient Education Materials: Dysphagia (ED) Referrals: Melchor Ewing MD [Primary Care Provider] - Nickolas Dahl MD [Medical Doctor] - Additional Instructions: Follow-up with GI Dr Dahl. Return to the ED for any new or worsening symptoms - Billing Disposition and Condition Condition: STABLE Disposition: Home
[2018-05-13 03:31] VITALS: BP 106/52
--- NOTE | 2018-05-13 08:17 | RAD ---
INDICATION: Throat pain and congestion COMPARISON: Similar chest x-ray February 15, 2011 TECHNIQUE: Single AP view of the chest was obtained. FINDINGS: The heart and mediastinum exhibit normal size and contour. The lungs are grossly clear. There is no evidence of a large pleural effusion. Visualized bones are normal for the patient's age. IMPRESSION: No radiographic evidence for acute cardiopulmonary abnormality on this single AP view chest x-ray. R0
--- NOTE | 2018-05-13 08:32 | RAD ---
Indication: Sore throat and congestion Comparison: None. Technique: AP and lateral views of the neck with soft tissue technique. Report: Unremarkable soft tissue contours. Pharyngeal, laryngeal, and tracheal air columns are normal in contour. The epiglottis is normal. The cervical spine and prevertebral soft tissues are normal. IMPRESSION: No acute abnormality. If the patient's symptoms persist, follow-up imaging is recommended. R0
== END 2018-05-13 03:34 | disposition home or self-care (01) ==
LOC: ED 21:33
DX: J02.9 Acute pharyngitis, unspecified (principal)
CPT/HCPCS: 70360; 71045; 87651; 99282

== ENCOUNTER 2019-03-31 10:15 | Emergency (ER) | payer MEDICARE, OTHER | END 2019-03-31 11:16 | disposition left against medical advice (07) | LOC: UCEAST 10:15 | DX: Z53.8 Procedure and treatment not carried out for other reasons (principal) ==

== ENCOUNTER 2019-03-31 10:42 | Emergency (ER) | payer MEDICARE, OTHER ==
[2019-03-31 10:50] VITALS: BP 148/76
--- NOTE | 2019-03-31 10:54 | UC ---
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 Does not think ribs are involved ( declined cxr, which was ordered after triage). No bruising. drove him from the bank to [facility]. No sob / palpitations. No n/v. No GI / sx. No ext / neck / back pain. - History of Current Complaint Chief Complaint: UCTrauma Stated Complaint: RIGHT SIDE RIB PAIN Hx Obtained From: Patient Pain Intensity: 0 - Allergy/Home Medications Allergies/Adverse Reactions: Allergies Allergy/AdvReac Type Severity Reaction Status Date / Time cimetidine Allergy Unknown Verified 03/31/19 10:50 Reaction Details gluten Allergy Unknown Verified 03/31/19 10:50 Reaction Details lithium Allergy fainted Verified 03/31/19 10:50 Penicillins Allergy Unknown Verified 03/31/19 10:50 Reaction Details ciprofloxacin AdvReac Shakes Verified 03/31/19 10:50 cyclobenzaprine AdvReac Rash Verified 03/31/19 10:50 MAOI inhibitors Allergy Unknown Uncoded 03/31/19 10:50 Reaction Details PMH/Surg Hx/FS Hx/Imm Hx Previously Healthy: No - 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 - Surgical History Surgical History: Yes Surgery Procedure, Year, and Place: CYST REMOVED LT INDEX FINGER - Family History Known Family History: Positive: None, Cardiac Disease Negative: Hypertension, Diabetes - Social History Alcohol Use: None Substance Use Type: None Smoking Status (MU): Never Smoked Tobacco Review of Systems All Other Systems Reviewed And Are Negative: Yes Constitutional: Positive: Negative Skin: Positive: Negative Eyes: Positive: Negative - no c/os. wearing dark glasses. ENT: Positive: Negative Respiratory: Positive: Negative, Other - see hpi Cardiovascular: Positive: Negative, Other - see hpi Gastrointestinal: Positive: Other - see hpi Genitourinary: Positive: Other - see hpi Motor: Positive: Other - see hpi Neurovascular: Positive: Negative Musculoskeletal: Positive: Other: - see hpi Neurological: Positive: Negative Psychological: Positive: Negative Is Patient Immunocompromised?: No Physical Exam Triage Information Reviewed: Yes Appearance: Well-Nourished - well nourished but thin walking around. lies down for phys exam, able to sit up. Pt was in placed in room approx 11:30 ( originally xray had been ordered, but not complete) Vital Signs: Initial Vital Signs Temp 98.8 F 03/31/19 10:46 Pulse 63 03/31/19 10:46 Resp 18 03/31/19 10:46 BP 148/76 03/31/19 10:46 Pulse Ox 100 03/31/19 10:46 Vital Signs Reviewed: Yes Eye Exam: Other - grossly normal, but wearing dark glasses ENT Exam: Normal - no focal abnormalities to gross exam Neck exam: Other - no c/os moves head / neck without issue reported Respiratory Exam: Other - R ribs - without focal tenderness over bones. No eccymosis or crepitus appreciated Respiratory: Positive: Lungs clear, Normal breath sounds, No respiratory distress, No accessory muscle use Cardiovascular Exam: Normal Cardiovascular: Positive: RRR, Pulses Normal, Brisk Capillary Refill Abdominal Exam: Other - + nabs, soft, nd Tender RUQ Mild tender R cva. no guarding. Musculoskeletal Exam: Normal - gait steady, moves x 4 ext's Neurological Exam: Normal - grossly nonfocal Psychological Exam: Normal - conversing easily and appropriately Skin Exam: Normal - no visible or reported rash nondiaphoretic Course/Dx - Course Course Of Treatment: Urine dip ordered. However, Mr. Fox had to urinate prior to sample cup being brought to him. U/s abd limited ordered. However, Mr. Fox declined this study, and departed, citing that he has not been seen. Ambulated (walking) accompanied by spouse. Prior to his departure, we had discussed that regardless of u/s , urine results , that if sx worsen then he should go to the ED. As such, he was aware of this at time of departure. - Diagnoses Provider Diagnosis: Abdominal pain Discharge - Sign-Out/Discharge Documenting (check all that apply): Patient Departure All imaging exams completed and their final reports reviewed: No Studies - Discharge Plan Condition: Guarded Disposition: ELOPEMENT Patient Education Materials: Abdominal Pain (ED) Referrals: Macey Aleman MD [Primary Care Provider] - - Billing Disposition and Condition Condition: GUARDED Disposition: Elopement
== END 2019-03-31 11:50 | disposition home or self-care (01) ==
LOC: UCEAST 10:42
DX: R10.11 Right upper quadrant pain (principal); Z88.0 Allergy status to penicillin
CPT/HCPCS: 99212; G0463

== ENCOUNTER 2019-05-26 02:41 | Emergency (ER) | payer MEDICARE, OTHER ==
[2019-05-26] MEDS ORDERED: NS 0.9% 1000 ML** 1,000 ML IV ONE (03:31)
[2019-05-26] MEDS ORDERED: diPHENhydraMINE IV* 50 MG/ML 1 ml VIAL (BENADRYL) IV ONE (03:32)
[2019-05-26] MEDS ORDERED: PROCHLORPERAZINE INJ 5 MG/ML 2 ML VIAL IV ONE (03:32)
--- NOTE | 2019-05-26 04:35 | ED ---
Dizziness - HPI Summary HPI Summary: Pt is a 69 y/o M presenting to the ED with a chief complaint of frequent headaches and dizziness. He states he has been waking up with headaches located in the back of his head, and has also been experiencing frequent dizziness described as room spinning. He reports weakness in his L side and L foot and L fingers tingling. This past 05/23/19, he went on a hay ride and through a pumpkin maze, and after the hay ride he could not see for a period of time, potentially out of a reaction to something in the environment. He is chronically photophobic. - History Of Current Complaint Chief Complaint: EDHeadache Stated Complaint: POSS STROKE PER PT Time Seen by Provider: 05/26/19 03:19 Hx Obtained From: Patient Onset/Duration: Still Present, Gradually Timing: Hours Severity Initially: Moderate Severity Currently: Moderate Character: Room Spinning, Dizzy Aggravating Factor(s): Nothing Alleviating Factor(s): Nothing Associated Signs And Symptoms: Negative: Nausea - Allergies/Home Medications Allergies/Adverse Reactions: Allergies Allergy/AdvReac Type Severity Reaction Status Date / Time cimetidine Allergy Unknown Verified 05/26/19 02:48 Reaction Details gluten Allergy Unknown Verified 05/26/19 02:48 Reaction Details lithium Allergy fainted Verified 05/26/19 02:48 Penicillins Allergy Unknown Verified 05/26/19 02:48 Reaction Details ciprofloxacin AdvReac Shakes Verified 05/26/19 02:48 cyclobenzaprine AdvReac Rash Verified 05/26/19 02:48 MAOI inhibitors Allergy Unknown Uncoded 05/26/19 02:48 Reaction Details PMH/Surg Hx/FS Hx/Imm Hx Previously Healthy: Yes Endocrine/Hematology History: Denies: Hx Diabetes Cardiovascular History: Denies: Hx Hypertension, Hx Pacemaker/ICD GI History: Reports: Other GI Disorders - splenic flexure syndrome History: Reports: Other Problems/Disorders - Overactive Bladder, Enlarged Prostate, interstitial cystitis Denies: Hx Dialysis, Hx Renal Disease Musculoskeletal History: Reports: Other Musculoskeletal History - Spinal Disk Deterioration, Mortons Neuromas Sensory History: Reports: Hx Hearing Aid - WILL NOT WEAR FOR MR Neurological History: Reports: Hx Migraine, Other Neuro Impairments/Disorders - Peripheral Neuropathy, Sleep Apnea, Denies: Hx Seizures Psychiatric History: Reports: Hx Panic Disorder - WILL BE OK FOR THIS MRI, Hx Post Traumatic Stress Disorder, Other Psychiatric Issues/Disorders - Social Anexity - Cancer History Cancer Type, Location and Year: ptsd - Surgical History Surgery Procedure, Year, and Place: CYST REMOVED LT INDEX FINGER Infectious Disease History: No Infectious Disease History: Denies: Hx Clostridium Difficile, Hx Hepatitis, Hx Human Immunodeficiency Virus (HIV), Hx Shingles, Hx Tuberculosis, Traveled Outside the [place] in Last 30 Days - Family History Known Family History: Positive: Cardiac Disease Negative: Hypertension, Diabetes - Social History Alcohol Use: Daily Alcohol Amount: 4oz hard cider Hx Substance Use: No Substance Use Type: Reports: None Hx Tobacco Use: No Smoking Status (MU): Never Smoked Tobacco Review of Systems Positive: Photophobia Neurological: Other - dizziness Positive: Headache, Weakness All Other Systems Reviewed And Are Negative: Yes Physical Exam - Summary Physical Exam Summary: Constitutional: Well-developed, Well-nourished, Alert. (-) Distressed Skin: Warm, Dry HENT: Normocephalic; Atraumatic Eyes: Conjunctiva normal Neck: Musculoskeletal ROM normal neck. (-) JVD, (-) Stridor, (-) Tracheal deviation Cardio: Rhythm regular, rate normal, Heart sounds normal; Intact distal pulses. Radial pulses are 2+ and symmetric. (-) Murmur Pulmonary/Chest wall: Effort normal. (-) Respiratory distress, (-) Wheezes, (-) Rales Abd: Soft. (-) Tenderness, (-) Distension, (-) Guarding, (-) Rebound Musculoskeletal: (-) Edema Lymph: (-) Cervical adenopathy Neuro: Alert, Oriented x3, Strength normal, Cranial nerves II-XII are grossly intact. (-) Dysmetria, (-) Nystagmus, (-) Ataxia by finger to nose testing, (-) Sensory deficit. Walks with normal gait. Psych: Mood and affect Normal Triage Information Reviewed: Yes Vital Signs On Initial Exam: Initial Vitals Temp Pulse Resp BP Pulse Ox 98.6 F 78 15 144/83 98 05/26/19 02:43 05/26/19 02:43 05/26/19 02:43 05/26/19 02:43 05/26/19 02:43 Vital Signs Reviewed: Yes Procedures - Sedation Patient Received Moderate/Deep Sedation with Procedure: No Diagnostics - Vital Signs Vital Signs Temp Pulse Resp BP Pulse Ox 05/26/19 04:16 76 156/81 96 05/26/19 04:00 85 94 05/26/19 03:38 60 128/74 97 05/26/19 03:09 63 98 05/26/19 03:08 67 137/75 97 05/26/19 02:43 98.6 F 78 15 144/83 98 - Laboratory Lab Statement: Any lab studies that have been ordered have been reviewed, and results considered in the medical decision making process. Re-Evaluation - Re-Evaluation 1st re-eval Re-Evaluation Time: 04:31 Change: Improved Comment: Pt states he feels mostly better. He is still somewhat dizzy but is comfortable with discharge. Dizzy Course/Dx - Course Course Of Treatment: Patient is here with headache, photosensitivity, vertigo. Upon my examination, patient had no neurologic deficits and was well-appearing. Patient ambulated with a normal gait. Patient did not need emergent stroke workup as he had no objective symptoms. Patient did have migraine symptoms which could fit a consult expiring symptomology. Patient is given a migraine cocktail with pruriginous symptoms. Patient was very anxious all-time here and is encouraged to follow up this primary care doctor for placement on anxiety medication (SSRI) - Diagnoses Provider Diagnoses: Vertigo, Headache, Anxiety Discharge ED - Sign-Out/Discharge Documenting (check all that apply): Patient Departure - Discharge Plan Condition: Stable Disposition: HOME Patient Education Materials: Vertigo (ED), Anxiety (ED), General Headache (ED) Referrals: Macey Aleman MD [Primary Care Provider] - Additional Instructions: Please follow up with your primary care provider within the next 1-3 days to discuss possibly going on an antidepressant for your anxiety. Return to the emergency department with any new or worsening symptoms, including inability to walk or slurred speech. - Billing Disposition and Condition Condition: STABLE Disposition: Home - Attestation Statements Document Initiated by Scribe: Yes Documenting Scribe: Sugey Vick Provider For Whom Valentina is Documenting (Include Credential): Vishal Hernandez MD. Scribe Attestation: Sugey Farfan, scribed for Vishal Hernandez MD. on 05/26/19 at 0526. Scribe Documentation Reviewed: Yes Provider Attestation: The documentation as recorded by the scribe, Sugey Vick accurately reflects the service I personally performed and the decisions made by me, Vishal Hernandez MD. Status of [place] Document: Viewed
[2019-05-26 04:59] VITALS: BP 129/70
== END 2019-05-26 04:58 | disposition home or self-care (01) ==
LOC: ED 02:41
DX: R42 Dizziness and giddiness (principal); R51 Headache; F41.9 Anxiety disorder, unspecified; Z88.1 Allergy status to other antibiotic agents; Z88.0 Allergy status to penicillin; Z88.8 Allergy status to other drugs, medicaments and biological substances; Z79.82 Long term (current) use of aspirin
CPT/HCPCS: 96374; 96375; 99283; J0780; J1200